=== PATIENT | female | born 1980 | race Caucasian/White ===

== ENCOUNTER → 2018-07-29 | Outpatient (CLI) | payer OTHER, MEDICAID ==
[~2018-07-29] MED LIST: DOCU-131 PO; HYDR-3240 PO; IBUP-1222 PO; PNV1TABL4 PO
== END | disposition home or self-care (01) ==
LOC: CFH 15:29
PROVIDERS: ATTEND Nurse Practitioner Family
DX: G43.109 Migraine with aura, not intractable, without status migrainosus (principal)
CPT/HCPCS: 70450